=== PATIENT | female | born 1955 | race Caucasian/White ===

== ENCOUNTER 2019-01-20 09:04 | Emergency (ER) | payer OTHER, MEDICAID ==
[~2019-01-20] VITALS: Ht 154.9 cm; Wt 60.3 kg
[2019-01-20 09:53] VITALS: Ht 154.9 cm; Wt 60.3 kg
[2019-01-20 13:16] VITALS: BP 130/84
== END 2019-01-20 13:16 | disposition home or self-care (01) ==
LOC: ED 09:04
DX: S00.03XA Contusion of scalp, initial encounter (principal); I10 Essential (primary) hypertension; E07.9 Disorder of thyroid, unspecified; Z86.59 Personal history of other mental and behavioral disorders; W06.XXXA Fall from bed, initial encounter; Y93.89 Activity, other specified; Y92.89 Other specified places as the place of occurrence of the external cause; Y99.8 Other external cause status